=== PATIENT | male | born 1980 | race Caucasian/White ===

== ENCOUNTER 2021-11-20 22:05 | Emergency (ER) | payer BC ==
[~2021-11-20] VITALS: Ht 180.3 cm; Wt 86.2 kg
--- NOTE | 2021-11-20 22:13 | NUR ---
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 PT STATES PAIN ONSET WHILE DRIVING AND HAVING AN ARGUMENT WITH . INCREASED PAIN WITH CERTAIN MOVEMENTS AND DEEP BREATHS. SKIN SIGNS WNL. PT CHANGED INTO GOWN AND PLACED ON CRYSTAL MACHINING COORDINATOR AND PULSE OX AND V/S WNL.
--- NOTE | 2021-11-20 22:15 | NUR ---
EMT AT BEDSIDE FOR EKG
--- NOTE | 2021-11-20 22:18 | NUR ---
20G RH. BLOOD DRAWN AND SENT TO LAB
[2021-11-20] MEDS ORDERED: IBUPROFEN 400 MG TABLET ONE ×2 (22:22→22:24)
[2021-11-20] MEDS ORDERED: ONDANSETRON HCL/PF 4 MG/2 ML VIAL IV ONE (22:30)
[2021-11-20] MEDS ORDERED: IBUPROFEN 400 MG TABLET PO ONE (22:30)
[2021-11-20 22:36] LABS: BASOPHILS % (AUTO) 0.4 % (0.0-2.0); EOSINOPHILS % (AUTO) 2.5 % (0.0-6.0); HEMATOCRIT 44 % (39-51); HEMOGLOBIN 14.8 g/dL (13.5-17.5); LYMPHOCYTES # (AUTO) 1.2 K/uL (0.8-4.8); LYMPHOCYTES % (AUTO) 20.2 % (20.0-44.0); MEAN CORPUSCULAR HGB CONC 33 g/dl (31.0-36.0); MEAN CORPUSCULAR VOLUME 87 fL (80-96); MONOCYTES # (AUTO) 0.4 K/uL (0.1-1.30); MONOCYTES % (AUTO) 6.4 % (2.0-12.0); NEUTROPHILS # (AUTO) 4.3 K/uL (1.8-8.9); NEUTROPHILS % (AUTO) 70.5 % (43.0-81.0); PLATELET COUNT (AUTO) 209 K/uL (150-450); RED BLOOD CELL COUNT(AUTO) 5.06 MIL/uL (4.5-6.0); WHITE BLOOD COUNT (AUTO) 6.2 K/uL (4.3-11.0)
[2021-11-20] MEDS ORDERED: ONDANSETRON HCL/PF 4 MG/2 ML VIAL ONE (22:37)
[2021-11-20 22:48] LABS: CALCIUM, SERUM 8.6 mg/dL (8.5-10.1); CARBON DIOXIDE 25 mmol/L (21-32); CHLORIDE 104 mmol/L (98-107); GLUCOSE 135 mg/dL (74-106); POTASSIUM 3.3 mmol/L (3.5-5.1); SODIUM SERUM 137 mmol/L (136-145); UREA NITROGEN, BLOOD 17 mg/dL (7-18)
[2021-11-20 22:55] LABS: ALANINE AMINOTRANSFERASE 34 U/L (12-78); ALBUMIN 3.7 g/dL (3.4-5.0); ALKALINE PHOSPHATASE 64 U/L (46-116); ASPARTATE AMINOTRANSFERASE 18 U/L (15-37); BILIRUBIN,DIRECT 0.1 mg/dL (0.0-0.2); BILIRUBIN,TOTAL 0.3 mg/dL (0.2-1.0); TOTAL PROTEIN, SERUM 7.4 g/dL (6.4-8.2)
--- NOTE | 2021-11-20 23:35 | NUR ---
Patient discharged to home in stable condition. Written and verbal after care instructions given. Patient verbalizes understanding of instruction.IV removed. Catheter intact and site benign. Pressure and 4x4 applied to site. No bleeding noted.
[2021-11-21 00:07] VITALS: BP 122/66
== END 2021-11-20 23:35 | disposition home or self-care (01) ==
LOC: ER 22:10
DX: R07.89 Other chest pain (principal)
CPT/HCPCS: 99285; 96374; 71045; 93005; 85025; 80048; 80076; 85378; 36415; 84484; 85730; J2405